=== PATIENT | male | born 1995 | race Caucasian/White ===

== ENCOUNTER 2016-10-06 20:59 | Emergency (ER) | payer BC, MEDICAID ==
[2016-10-06 21:10] VITALS: BP 126/73; PULSE 66; O2SAT 99
[2016-10-06] MEDS ORDERED: TETRACAINE 0.5% STERI-UNIT SOL OP ONE (21:12)
[2016-10-06] MEDS ORDERED: TETRACAINE 0.5% STERI-UNIT SOL OP STA (21:13)
--- NOTE | 2016-10-06 21:38 | ERPHSYRPT ---
- History of Present Illness Time Seen by Provider: 10/06/16 21:23 Source: patient Exam Limitations: no limitations Patient Subjective Stated Complaint: sand in the eye. Triage Nursing Assessment: pt alert x 3. respirations even and unlabored. skin pink warm and dry. right eye is a slight redder than left eye. a piece of sand is on the pupil of the right eye. Physician History: The patient is a 21-year-old male with his mother complaining of getting a piece of sand right in the middle of his right cornea while at work at about 5 PM or 4 to half hours ago. He tried flushing without resolution. He works at a [employer] withers a lot of sand involved in the job. His tetanus vaccination is unknown. Timing/Duration: today Location: right eye Severity: mild Apparent Injury: yes Associated Symptoms: redness, foreign body sensation, blurred vision Visual Assistive Devices: None Hx Tetanus, Diphtheria Vaccination/Date Given: No Hx Influenza Vaccination/Date Given: No Hx Pneumococcal Vaccination/Date Given: No Immunizations Up to Date: Yes - Review of Systems Constitutional: No Fever, No Chills Eyes: Tearing, Foreign Body Sensation Ears, Nose, & Throat: No Symptoms Respiratory: No Cough, No Dyspnea Cardiac: No Chest Pain, No Edema, No Syncope Abdominal/Gastrointestinal: No Abdominal Pain, No Nausea, No Vomiting, No Diarrhea Genitourinary Symptoms: No Dysuria Musculoskeletal: No Back Pain, No Neck Pain Skin: No Rash Neurological: No Dizziness, No Focal Weakness, No Sensory Changes Psychological: No Symptoms Endocrine: No Symptoms Hematologic/Lymphatic: No Symptoms Immunological/Allergic: No Symptoms All Other Systems: Reviewed and Negative - Past Medical History Pertinent Past Medical History: No Respiratory History: Asthma Other Medical History: fractured left arm 1990 - Past Surgical History Past Surgical History: Yes - Social History Smoking Status: Never smoker Exposure to second hand smoke: Yes Drug Use: none Patient Lives Alone: No - Nursing Vital Signs Nursing Vital Signs: Initial Vital Signs Temperature 98.4 F Temperature Source Oral Pulse Rate 66 Respiratory Rate 20 Blood Pressure [Right Arm] 126/73 Pain Intensity 0 - Physical Exam General Appearance: mild distress Vision Acuity Degree Evaluation Phase: Uncorrected Eye Exam: right eye: foreign body (There is a tiny piece of light colored stand directly in the middle of his right cornea area), left eye: normal inspection, bilateral eye: PERRL Ears, Nose, Throat Exam: normal ENT inspection Neck Exam: normal inspection Respiratory Exam: normal breath sounds Cardiovascular Exam: regular rate/rhythm Gastrointestinal Exam: soft Extremity Exam: normal inspection Neurologic: alert Skin Exam: normal color SpO2 Interpretation: normal SpO2: 99 Oxygen Delivery: Room Air Procedures - Eye Procedure Tetracaine Drops Administered: Yes Eye FB Removal: removal w/ needle Remaining Material after FB Removal: none Antibiotic Oinment/Drps Admin: right eye Ordered Tests: Medication Summary Discontinued Medications Generic Name Dose Route Start Last Admin Trade Name Carmel PRN Reason Stop Dose Admin Tetracaine HCl 4 ml 10/06/16 21:13 10/06/16 21:13 Tetracaine 0.5% Steri-Unit Martha OP 10/06/16 21:14 4 ml STAT STA Administration Tetracaine HCl Confirm 10/06/16 21:12 Tetracaine 0.5% Steri-Unit Martha Administered 10/06/16 21:13 Dose 4 ml OP .STK-MED ONE - Progress Progress: improved Counseled pt/family regarding: diagnosis - Departure Time of Disposition: 21:43 Departure Disposition: Home Clinical Impression: Foreign body of right eye Condition: Stable Critical Care Time: No Additional Instructions: You had a tiny piece of sand on the cornea of your right eye that was successfully removed. You were given a tetanus vaccination in the ER. Use 2 drops of gentamicin solution every 1-2 hours while awake in the right eye for 5 days. Follow-up tomorrow if the condition worsens significantly.
[2016-10-06] MEDS ORDERED: Adacel Vial IM ONE ×2 (21:45→21:53)
[2016-10-06] MEDS ORDERED: GARAMYCIN 0.3% OPHTH SOL OP ONE (21:46)
[2016-10-06] MEDS ORDERED: GARAMYCIN 0.3% OPHTH SOL ONE (21:53)
== END 2016-10-06 22:04 | disposition home or self-care (01) ==
LOC: ED 20:59
DX: T15.91XA Foreign body on external eye, part unspecified, right eye, initial encounter (principal); Y92.63 Factory as the place of occurrence of the external cause; Y99.0 Civilian activity done for income or pay
CPT/HCPCS: 90471; 90715; 99281; 99283; A9270-GY

== ENCOUNTER 2019-02-02 00:30 | Emergency (ER) | payer BC ==
[2019-02-02 00:58] VITALS: O2SAT 97
[2019-02-02] MEDS ORDERED: BACIGUENT PACKET ONE (01:43)
--- NOTE | 2019-02-02 01:43 | ERPHSYRPT ---
- History of Present Illness Time Seen by Provider: 02/02/19 01:38 Source: patient, family Exam Limitations: no limitations Patient Subjective Stated Complaint: pt states while cutting potatoes he cut the tip of his finger off- index finger rt hand Triage Nursing Assessment: pt alert and oriented, answers questions approp. pt ambulatory with steady gait noted. respirations nonlabored with lungs cta. skin pink warm and dry. pt with open area to rt index finger- small amt of bleeding noted Physician History: pt sliced /avulsed skin from part of the tip of his right index finger; underlying bone nontender; clean wound without debris or FB upon probing; Pt is advised that there will be permanent scar and divit and that the tip may become hypersensitive , and that grafting may help , he choses simple healing without other interventins/plastics at this time and will f/u if that is desired later; tetanus UTD - 2 years. no other injuries Occurred: just prior to arrival Method of Injury: incised Quality: constant, sharpness Severity of Pain-Max: mild Severity of Pain-Current: mild Extremities Pain Location: 2nd finger: right Modifying Factors: Improves With: movement Associated Symptoms: none Hx Tetanus, Diphtheria Vaccination/Date Given: Yes (2016) Hx Influenza Vaccination/Date Given: No Hx Pneumococcal Vaccination/Date Given: No Immunizations Up to Date: Yes - Review of Systems Constitutional: No Fever, No Chills Eyes: No Symptoms Ears, Nose, & Throat: No Symptoms Respiratory: No Cough, No Dyspnea Cardiac: No Chest Pain, No Edema, No Syncope Abdominal/Gastrointestinal: No Abdominal Pain, No Nausea, No Vomiting, No Diarrhea Genitourinary Symptoms: No Dysuria Musculoskeletal: No Back Pain, No Neck Pain Skin: Other (lac as above), No Rash Neurological: No Dizziness, No Focal Weakness, No Sensory Changes Psychological: No Symptoms Endocrine: No Symptoms All Other Systems: Reviewed and Negative - Past Medical History Pertinent Past Medical History: No Respiratory History: Asthma Other Medical History: fractured left arm 1990 - Past Surgical History Past Surgical History: Yes - Social History Smoking Status: Never smoker Exposure to second hand smoke: Yes Drug Use: none Patient Lives Alone: No - Nursing Vital Signs Nursing Vital Signs: Initial Vital Signs Temperature 97.8 F 02/02/19 00:44 Pulse Rate 83 02/02/19 00:44 Respiratory Rate 16 02/02/19 00:44 Blood Pressure 133/61 02/02/19 00:44 O2 Sat by Pulse Oximetry 97 02/02/19 00:44 Pain Scale Pain Intensity 0 - Physical Exam General Appearance: alert Eyes, Ears, Nose, Throat Exam: moist mucous membranes Neck Exam: non-tender, supple Cardiovascular/Respiratory Exam: chest non-tender, normal breath sounds, regular rate/rhythm, no respiratory distress Abdominal Exam: non-tender, No guarding Back Exam: normal inspection, No vertebral tenderness Shoulder Exam: non-tender, no evidence of injury, normal ROM Elbow/Forearm Exam: normal inspection, non-tender, no evidence of injury, normal ROM Wrist Exam: normal inspection, non-tender, no evidence of injury, normal ROM Hand Exam: normal inspection, non-tender, normal ROM, laceration DTR - Upper Extremity Exam: bicep (R): 2+, bicep (L): 2+, tricep (R): 2+, tricep (L): 2+ Neuro/Tendon Exam: normal sensation, normal motor functions Mental Status Exam: alert, oriented x 3, cooperative Skin Exam: normal color, warm, dry SpO2 Interpretation: normal SpO2: 97 - Course Nursing assessment & vital signs reviewed: Yes - Progress Progress: improved, re-examined Counseled pt/family regarding: diagnosis, need for follow-up - Departure Departure Disposition: Home Clinical Impression: partial tip shallow avulsion lac right i, index finger Condition: Good Critical Care Time: No Referrals: DO BOYLE, DEHYDROGENATION OPERATOR [Primary Care Provider] - Instructions: Wound Care (DC), Common Finger Injuries (DC) Additional Instructions: see your sunday for first dressing change , then soak finger in epsom salts daily and replace xeroform louise , antibiotic ointment ,and louise dressing until healed; this will take 3 or 4 weeks and will leave a scar which may be sensitive. if it is too sensitive a graft may help by a plastics web communications specialist. return meantime if any concerns. Prescriptions: Mupirocin [Bactroban OINTMENT] 22 gm TP DAILY #1 tube
[2019-02-02 02:09] VITALS: BP 114/78; PULSE 78
== END 2019-02-02 02:10 | disposition home or self-care (01) ==
LOC: ED 00:30
DX: S61.310A Laceration without foreign body of right index finger with damage to nail, initial encounter (principal); W26.0XXA Contact with knife, initial encounter; Y93.G3 Activity, cooking and baking; Y92.89 Other specified places as the place of occurrence of the external cause; Y99.8 Other external cause status
CPT/HCPCS: 99283; A9270-GY